=== PATIENT | female | born 1955 | race Caucasian/White ===

== ENCOUNTER → 2017-03-25 | Outpatient (CLI) | payer BC ==
[~2017-03-25] MED LIST: ASPI-496 PO; CARV-39 PO; CHOL40002 PO; MAGNESIUM PLUS PO; OM-31CAP8 PO; VITA1TAB3 PO; WP THYROID PO
[2017-03-25 14:16] LABS: BLOOD UREA NITROGEN 13 mg/dL (7-18)
== END | disposition home or self-care (01) ==
LOC: STAR 13:02
PROVIDERS: ATTEND Obstetrics & Gynecology Female Pelvic Medicine and Reconstructive Surgery
DX: Z01.818 Encounter for other preprocedural examination (principal); R03.0 Elevated blood-pressure reading, without diagnosis of hypertension
CPT/HCPCS: 36415; 71020; 80048; 85025; 93005

== ENCOUNTER 2017-04-06 05:39 | Day surgery (SDC) | payer BC ==
[~2017-04-06] VITALS: Ht 170.2 cm; Wt 96.0 kg
[2017-04-06] MEDS ORDERED: THROMBIN 5,000 UNIT VIAL TP ONE (06:13)
[2017-04-06] MEDS ORDERED: NEOMY/POLYMYXIN B GU IRR. 1 ML IRRIG ONE (06:13)
[2017-04-06] MEDS ORDERED: FLUORESCEIN SODIUM 500 MG/5 ML ONE (06:14)
[2017-04-06] MEDS ORDERED: SILVER NITRATE STICK TP ONE (06:14)
[2017-04-06] MEDS ORDERED: BUPIVACAINE/PF 0.25% ONE (06:15)
[2017-04-06] MEDS ORDERED: LACTATED RINGERS 1,000 ML IV SCH ×2 (06:15→07:36)
[2017-04-06 06:17] VITALS: BP 133/88
[2017-04-06] MEDS ORDERED: MIDAZOLAM 1 MG/ML, 2ML ONE (06:36)
[2017-04-06] MEDS ORDERED: FENTANYL PF 250 MCG/5ML ONE (06:36)
[2017-04-06] MEDS ORDERED: KETOROLAC 30 MG/1 ML ONE (06:55)
[2017-04-06] MEDS ORDERED: PROPOFOL 10 MG/ML, 20ML ONE (06:55)
[2017-04-06] MEDS ORDERED: ONDANSETRON 2MG/ML, 2ML ONE (06:55)
[2017-04-06] MEDS ORDERED: DEXAMETHASONE 4 MG/ML, 1ML ONE (06:55)
[2017-04-06] MEDS ORDERED: BUPIVACAINE/PF-EPI 0.5% 1:200K SQ ONE (07:18)
[2017-04-06] MEDS ORDERED: MEPERIDINE/PF 25MG/0.5ML IVPush PRN (07:30)
[2017-04-06] MEDS ORDERED: ONDANSETRON 2MG/ML, 2ML IVPush PRN ×2 (07:30→08:00)
[2017-04-06] MEDS ORDERED: ALBUTEROL/IPRATROPIUM 2.5MG/0.5MG, 3 ML NPPB PRN (07:30)
[2017-04-06] MEDS ORDERED: PROMETHAZINE 25 MG/ML, 1ML IV PRN (07:30)
[2017-04-06] MEDS ORDERED: MIDAZOLAM 1 MG/ML, 2ML IV PRN (07:30)
[2017-04-06] MEDS ORDERED: LABETALOL 5MG/ML, 20ML IV PRN (07:30)
[2017-04-06] MEDS ORDERED: METOCLOPRAMIDE 5 MG/ML, 2ML IV PRN (07:30)
[2017-04-06] MEDS ORDERED: hydrALAzine 20 MG/ML, 1ML IV PRN (07:30)
[2017-04-06] MEDS ORDERED: HYDROmorphone 1 MG/ML, 1ML IV PRN (07:30)
[2017-04-06] MEDS ORDERED: FENTANYL PF 100 MCG/2ML ONE (07:48)
[2017-04-06] MEDS: FENTANYL PF 100 MCG/2ML IV PRN ×2 (07:53→08:04)
[2017-04-06] MEDS ORDERED: IBUPROFEN 600 MG TABLET PO PRN (08:00)
[2017-04-06] MEDS ORDERED: BUPIVACAINE/PF-EPI 0.5% 1:200K ONE (14:23)
== END 2017-04-06 12:05 | disposition home or self-care (01) ==
LOC: OUT 05:39
PROVIDERS: ATTEND Obstetrics & Gynecology Female Pelvic Medicine and Reconstructive Surgery
DX: N85.8 Other specified noninflammatory disorders of uterus (principal); I10 Essential (primary) hypertension; E03.9 Hypothyroidism, unspecified; Z88.6 Allergy status to analgesic agent; Z91.040 Latex allergy status; Z98.890 Other specified postprocedural states; Z98.51 Tubal ligation status; Z86.19 Personal history of other infectious and parasitic diseases; F41.9 Anxiety disorder, unspecified; Z80.9 Family history of malignant neoplasm, unspecified
CPT/HCPCS: 58558; 88305; J1100; J1885; J2250; J2405; J2704; J3010; J7120; J3490

== ENCOUNTER 2017-09-12 16:30 | Emergency (ER) | payer BC ==
[~2017-09-12] VITALS: Ht 167.6 cm; Wt 89.9 kg
[2017-09-12 18:58] VITALS: BP 129/89
== END 2017-09-12 19:01 | disposition home or self-care (01) ==
LOC: ED 18:30
DX: S63.522A Sprain of radiocarpal joint of left wrist, initial encounter (principal); S93.492A Sprain of other ligament of left ankle, initial encounter; S80.211A Abrasion, right knee, initial encounter; J45.909 Unspecified asthma, uncomplicated; W19.XXXA Unspecified fall, initial encounter; Y93.89 Activity, other specified; Y99.8 Other external cause status; Y92.481 Parking lot as the place of occurrence of the external cause
CPT/HCPCS: 29125; 93005; 99284

== ENCOUNTER → 2017-10-21 | Outpatient (CLI) | payer BC | LOC: CFH 10:00 | PROVIDERS: ATTEND Internal Medicine | DX: K80.20 Calculus of gallbladder without cholecystitis without obstruction (principal); N28.1 Cyst of kidney, acquired; B19.20 Unspecified viral hepatitis C without hepatic coma | CPT/HCPCS: 76705 ==

== ENCOUNTER → 2018-01-28 | Outpatient (CLI) | payer BC | LOC: RAD 10:26 | PROVIDERS: ATTEND Internal Medicine | DX: M54.6 Pain in thoracic spine (principal); G89.29 Other chronic pain | CPT/HCPCS: 72072 ==

== ENCOUNTER → 2019-01-05 | Outpatient (CLI) | payer BC ==
[~2019-01-05] MED LIST changes: +ALPR0.25 PO; +LACT1CAP35 PO; +MAGNESIUM PO; +THYR90TA4 PO; +VITA150T PO
== END | disposition home or self-care (01) ==
LOC: CFH 07:33
PROVIDERS: ATTEND Internal Medicine
DX: E03.9 Hypothyroidism, unspecified (principal); R07.0 Pain in throat
CPT/HCPCS: 76536